=== PATIENT | female | born 1995 | race Caucasian/White ===

== ENCOUNTER 2021-02-01 04:36 | Inpatient (IN) | payer MEDICAID ==
[~2021-02-01] VITALS: Ht 149.9 cm; Wt 60.7 kg
--- NOTE | 2021-02-01 04:56 | NUR ---
pt came into ed this evening after n/v x4days. states it had gone away for a bit and then this morning came back worse than before. still having bowel movements, last bm today. Also reports chest pain beginning this am in the sternal region, pulses 2+. gross neuro intact. nad, bed in lowest, rails engaged, call light on lap, vss, wctm.
[2021-02-01] MEDS ORDERED: ONDANSETRON 2MG/ML, 2ML ONE (05:19)
[2021-02-01] MEDS ORDERED: SODIUM CHLORIDE 0.9% 1,000ML IVBOLUS ONE (05:30)
[2021-02-01] MEDS ORDERED: ONDANSETRON 2MG/ML, 2ML IVPush ONE (05:30)
[2021-02-01] MEDS ORDERED: MAALOX/HYOSCYAMINE/LIDOCAINE 45 ML BTL ONE (05:41)
[2021-02-01 05:51] LABS: BASOPHILS % (AUTO) 0 % (0-1); EOSINOPHILS % (AUTO) 3 % (1-7); LYMPHOCYTES % (AUTO) 44 % (22-44); MEAN CORPUSCULAR HEMOGLOBIN 30.8 pg (27.0-34.8); MEAN CORPUSCULAR HGB CONC 33.9 g/dL (32.4-35.8); MEAN PLATELET VOLUME 8.3 fL (7.4-10.4); MONOCYTES % (AUTO) 7 % (2-9); NEUTROPHILS % (AUTO) 45 % (42-75); PLATELET COUNT 255 x10^3/uL (130-400); RED BLOOD COUNT 4.32 x10^6/uL (3.82-5.3); RED CELL DISTRIBUTION WIDTH 12.7 % (9.6-15.2)
--- NOTE | 2021-02-01 05:54 | NUR ---
PT MEDICATED PER MAR, NAD, NO CHANGE IN CONDITION AT THIS TIME. VSS. WAITING FOR LAB AND UA RESULTS. BED IN [facility], RAILS ENGAGED, CALL LIGHT ON LAP, WCTM.
[2021-02-01 06:00] LABS: ALBUMIN 4.2 g/dL (3.4-5.0); ANION GAP 7 mmol/L (5-15); CALCIUM 8.8 mg/dL (8.5-10.1); CHLORIDE 111 mmol/L (98-107); CREATININE 0.95 mg/dL (0.55-1.02)
[2021-02-01] MEDS ORDERED: MAALOX/HYOSCYAMINE/LIDOCAINE 45 ML BTL PO ONE (06:00)
[2021-02-01 06:08] LABS: MICROSCOPIC INDICATED
--- NOTE | 2021-02-01 06:16 | NUR ---
pt ambulated to restroom with a smooth and steady gait. nad, pt is dry heaving at this time. provided new underwear and clean pad due to currently being on period. ERP aware pt is still nauseated. awaiting new orders. wctm.
[2021-02-01] MEDS ORDERED: METOCLOPRAMIDE 5 MG/ML, 2ML IVPush ONE (06:30)
[2021-02-01] MEDS ORDERED: METOCLOPRAMIDE 5 MG/ML, 2ML ONE (06:53)
--- NOTE | 2021-02-01 06:55 | NUR ---
report to jenna dwyer, pt care transferred at this time.
[2021-02-01] MEDS ORDERED: HALOPERIDOL 5 MG/ML IM PRN (07:00)
[2021-02-01] MEDS ORDERED: HALOPERIDOL 5 MG/ML ONE (07:38)
[2021-02-01] MEDS ORDERED: PROMETHAZINE 25 MG/ML, 1ML ONE (08:11)
[2021-02-01] MEDS ORDERED: DIPHENHYDRAMINE 50 MG/ML, 1ML ONE (08:11)
[2021-02-01] MEDS ORDERED: DIPHENHYDRAMINE 50 MG/ML, 1ML IVPush ONE ×2 (08:30)
[2021-02-01] MEDS ORDERED: PROMETHAZINE 25 MG/ML, 1ML IM ONE (08:30)
[2021-02-01] MEDS ORDERED: IBUPROFEN 600 MG TABLET PO PRN (11:00)
[2021-02-01] MEDS ORDERED: ACETAMINOPHEN 325 MG TABLET PO PRN (11:00)
[2021-02-01] MEDS ORDERED: DIPHENHYDRAMINE 25 MG CAPSULE PO PRN (11:00)
--- NOTE | 2021-02-01 11:01 | NUR ---
PHONE REPORT TO GIOVANI MCKEON
--- NOTE | 2021-02-01 11:37 | NUR ---
PHONE REPORT TO GIOVANI FINCH
[2021-02-01] MEDS: PROMETHAZINE 25 MG/ML, 1ML IM PRN ×3 (12:55→20:14)
[2021-02-01] MEDS: LACTATED RINGERS 1,000 ML IV SCH ×2 (13:01→20:18)
[2021-02-01 13:04] VITALS: BP 157/97
[2021-02-01] MEDS ORDERED: POTASSIUM CHLORIDE 40 MEQ in SODIUM CHLORIDE 0.9% 500 ML IV ONE (14:00)
[2021-02-01] MEDS: ONDANSETRON 2MG/ML, 2ML IVPush PRN (14:49)
[2021-02-01] MEDS ORDERED: ALBUTEROL SULFATE 2.5 MG/3 ML NPPB PRN ×2 (15:00)
[2021-02-01] MEDS: KETOROLAC 30 MG/1 ML IV PRN (16:59)
[2021-02-01 17:05] LABS: AMPHETAMINE SCREEN, URINE Negative (Negative); BARBITURATE SCREEN, URINE Negative (Negative); BENZODIAZEPINE SCREEN, URINE Negative (Negative); CANNABINOID SCREEN, URINE Positive (Negative); COCAINE SCREEN, URINE Negative (Negative); METHADONE SCREEN, URINE Negative (Negative); OPIATE SCREEN, URINE Negative (Negative)
[2021-02-01] MEDS: FAMOTIDINE 20 MG/2 ML IVPush SCH (20:12)
[2021-02-01] MEDS: ONDANSETRON ODT 4 MG PO PRN (20:14)
[2021-02-01] MEDS ORDERED: FAMOTIDINE 20 MG TABLET PO SCH (21:00)
[2021-02-01 21:21] VITALS: BP 140/99
[2021-02-02 00:33] VITALS: BP 132/89
[2021-02-02] MEDS: ONDANSETRON 2MG/ML, 2ML IVPush PRN ×3 (02:05→21:27)
[2021-02-02] MEDS: ONDANSETRON ODT 4 MG PO PRN (03:01)
[2021-02-02] MEDS: KETOROLAC 30 MG/1 ML IV PRN (03:01)
[2021-02-02] MEDS: LACTATED RINGERS 1,000 ML IV SCH (03:46)
[2021-02-02] MEDS: PROMETHAZINE 25 MG/ML, 1ML IM PRN ×4 (06:28→18:31)
[2021-02-02 06:50] VITALS: BP 165/97
[2021-02-02] MEDS: FAMOTIDINE 20 MG/2 ML IVPush SCH ×2 (08:44→21:27)
[2021-02-02 09:01] LABS: ANION GAP 8 mmol/L (5-15); CALCIUM 8.7 mg/dL (8.5-10.1); CHLORIDE 98 mmol/L (98-107); CREATININE 0.68 mg/dL (0.55-1.02)
[2021-02-02] MEDS ORDERED: CEFTRIAXONE 1,000 MG in DEXTROSE 5% 50 ML IVPB SCH (14:00)
[2021-02-02 21:12] VITALS: BP 148/102
[2021-02-03] MEDS: PROMETHAZINE 25 MG/ML, 1ML IM PRN ×5 (00:11→20:31)
[2021-02-03 00:51] VITALS: BP 164/106
[2021-02-03] MEDS: ONDANSETRON 2MG/ML, 2ML IVPush PRN ×2 (03:34→09:41)
[2021-02-03] MEDS: SODIUM CHLORIDE 0.9% 1,000 ML IV SCH ×3 (06:40→22:55)
[2021-02-03 07:38] LABS: BASOPHILS % (AUTO) 0 % (0-1); EOSINOPHILS % (AUTO) 0 % (1-7); LYMPHOCYTES % (AUTO) 18 % (22-44); MEAN CORPUSCULAR HEMOGLOBIN 30.9 pg (27.0-34.8); MEAN CORPUSCULAR HGB CONC 34.7 g/dL (32.4-35.8); MEAN PLATELET VOLUME 8.1 fL (7.4-10.4); MONOCYTES % (AUTO) 9 % (2-9); NEUTROPHILS % (AUTO) 73 % (42-75); PLATELET COUNT 318 x10^3/uL (130-400); RED BLOOD COUNT 5.48 x10^6/uL (3.82-5.3); RED CELL DISTRIBUTION WIDTH 12.7 % (9.6-15.2)
[2021-02-03 07:46] LABS: ANION GAP 8 mmol/L (5-15); CALCIUM 8.4 mg/dL (8.5-10.1); CHLORIDE 92 mmol/L (98-107); CREATININE 0.72 mg/dL (0.55-1.02)
[2021-02-03 07:52] VITALS: BP 140/102
[2021-02-03] MEDS: FAMOTIDINE 20 MG/2 ML IVPush SCH ×2 (08:10→20:30)
[2021-02-03 08:12] VITALS: BP 121/74
[2021-02-03 12:35] VITALS: BP 162/97
[2021-02-03] MEDS ORDERED: SODIUM CHLORIDE 0.9%, 500ML IVBOLUS ONE (14:30)
[2021-02-03] MEDS ORDERED: LORazepam 2 MG/ML, 1ML IVPush ONE ×2 (14:30→21:30)
[2021-02-03] MEDS ORDERED: POTASSIUM CHLORIDE 40 MEQ in SODIUM CHLORIDE 0.9% 500 ML IV ONE (15:00)
[2021-02-03 15:46] LABS: ANION GAP 7 mmol/L (5-15); CALCIUM 7.9 mg/dL (8.5-10.1); CHLORIDE 97 mmol/L (98-107); CREATININE 0.95 mg/dL (0.55-1.02)
[2021-02-03 21:18] VITALS: BP 110/74
[2021-02-04 01:57] VITALS: BP 162/106
[2021-02-04] MEDS: SODIUM CHLORIDE 0.9% 1,000 ML IV SCH (05:33)
[2021-02-04 06:31] LABS: CHLORIDE 107 mmol/L (98-107)
[2021-02-04 06:50] LABS: ANION GAP 5 mmol/L (5-15); CALCIUM 7.7 mg/dL (8.5-10.1); CREATININE 0.77 mg/dL (0.55-1.02)
[2021-02-04 07:12] VITALS: BP 104/71
[2021-02-04] MEDS: FAMOTIDINE 20 MG/2 ML IVPush SCH (08:44)
[2021-02-04] MEDS ORDERED: ONDA4TAB13 PO (10:16)
[2021-02-04] MEDS ORDERED: LORA-446 PO (10:16)
[2021-02-04] MEDS ORDERED: PROM12.554 PR (10:22)
== END 2021-02-04 11:16 | disposition home or self-care (01) | DRG 463 ==
LOC: SUATTDRO 09:28 → ED 10:44 → OBSVTOIN 11:09 → EDIP 11:09 → INTOOBSV 11:09 → 4EST 11:53 → DCLOUNGE 02-04 11:10
PROVIDERS: ADMIT Family Medicine; ATTEND Family Medicine
PROC: 0T9B70Z Drainage of Bladder with Drainage Device, Via Natural or Artificial Opening (ICD-10-PCS; principal; 2021-02-01)
DX: N12 Tubulo-interstitial nephritis, not specified as acute or chronic (principal); E87.1 Hypo-osmolality and hyponatremia; N30.90 Cystitis, unspecified without hematuria; J45.20 Mild intermittent asthma, uncomplicated; I10 Essential (primary) hypertension; F12.90 Cannabis use, unspecified, uncomplicated; E86.0 Dehydration; E87.6 Hypokalemia
CPT/HCPCS: 36415; 74176; 80048; 80307; 81001; 82040; 82533; 83735; 83930; 83935; 84300; 84443; 84703; 85025; 87086; 87147; 93005; 96361; 96372; 96374; 96375; G0378; J0696; J1885; J2405; J2550; J3480; Q0162; J1200; J1630; J2060; J2765; J7030; J7040; J7120; Q0163

== ENCOUNTER 2021-03-23 15:58 | Emergency (ER) | payer MEDICAID ==
[~2021-03-23] VITALS: Ht 149.9 cm; Wt 54.8 kg
[~2021-03-23 15:58] MED LIST: LORA-446 PO; ONDA4TAB13 PO; PROM12.554 PR
[2021-03-23 16:04] VITALS: BP 139/86
--- NOTE | 2021-03-23 16:27 | NUR ---
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
--- NOTE | 2021-03-23 16:45 | NUR ---
US AT BEDSIDE.
--- NOTE | 2021-03-23 17:05 | NUR ---
ALL RESULTS ARE BACK AT THIS TIME. CHART UP FOR RECHECK.
== END 2021-03-23 18:12 | disposition home or self-care (01) ==
LOC: ED 17:37
DX: S80.12XA Contusion of left lower leg, initial encounter (principal); X58.XXXA Exposure to other specified factors, initial encounter; Y93.89 Activity, other specified; Y92.410 Unspecified street and highway as the place of occurrence of the external cause; Y99.8 Other external cause status
CPT/HCPCS: 99284

== ENCOUNTER 2021-06-10 12:23 | Emergency (ER) | payer MEDICAID ==
[~2021-06-10] VITALS: Ht 149.9 cm; Wt 55.0 kg
[2021-06-10 13:00] LABS: BASOPHILS % (AUTO) 0 % (0-1); EOSINOPHILS % (AUTO) 2 % (1-7); LYMPHOCYTES % (AUTO) 28 % (22-44); MEAN CORPUSCULAR HEMOGLOBIN 30.8 pg (27.0-34.8); MEAN CORPUSCULAR HGB CONC 34.3 g/dL (32.4-35.8); MONOCYTES % (AUTO) 7 % (2-9); NEUTROPHILS % (AUTO) 64 % (42-75); PLATELET COUNT 287 x10^3/uL (130-400); RED BLOOD COUNT 4.52 x10^6/uL (3.82-5.3); RED CELL DISTRIBUTION WIDTH 12.9 % (9.6-15.2)
[2021-06-10 13:09] LABS: ALBUMIN 4.2 g/dL (3.4-5.0); ANION GAP 5 mmol/L (5-15); CALCIUM 9.2 mg/dL (8.5-10.1); CHLORIDE 107 mmol/L (98-107); CREATININE 0.88 mg/dL (0.55-1.02)
--- NOTE | 2021-06-10 13:17 | NUR ---
[employer]o [employer] founder note: Pt in US, will be taken to room 18 when study complete.
--- NOTE | 2021-06-10 13:33 | NUR ---
ERP AT BS FOR EVAL
--- NOTE | 2021-06-10 13:35 | NUR ---
PT TO ROOM AFTER US. PT CONNECTED TO MONITORS, CALL LIGHT WITHIN REACH. PT C/O LMP April 20. PT STATES SHE HAS CRAMPS/ABD PAIN WITH LIGHT SPOTTING W/ N/V. BED IN LOWEST POSITION, BED RAILS UP X2.
[2021-06-10] MEDS ORDERED: ONDANSETRON ODT 4 MG ONE ×2 (13:39→13:43)
[2021-06-10] MEDS ORDERED: ONDANSETRON ODT 4 MG PO ONE (14:00)
[2021-06-10 14:58] VITALS: BP 120/70
--- NOTE | 2021-06-10 15:00 | NUR ---
PT RESTING ON TEODORO JOHNSN/VSS. CALL LIGHT WITHIN REACH. NO NEEDS AT THIS TIME
== END 2021-06-10 15:15 | disposition home or self-care (01) ==
LOC: ED 15:01
DX: O26.891 Other specified pregnancy related conditions, first trimester (principal); O21.8 Other vomiting complicating pregnancy; Z32.01 Encounter for pregnancy test, result positive; O99.331 Smoking (tobacco) complicating pregnancy, first trimester; F17.200 Nicotine dependence, unspecified, uncomplicated; Z3A.01 Less than 8 weeks gestation of pregnancy
CPT/HCPCS: 36415; 76801; 80048; 82040; 84702; 85025; 86901; 99284; Q0162

== ENCOUNTER 2021-06-12 10:48 | Emergency (ER) | payer MEDICAID ==
[~2021-06-12] VITALS: Ht 149.9 cm; Wt 56.0 kg
--- NOTE | 2021-06-12 11:15 | NUR ---
CODE 250 PAGED TO LOBBY RESTROOM. PT LYING ON FLOOR. ABLE TO SIT UP, AWAKE AND ALERT. PT WHEELED TO FRONT OF LOBBY WHERE STAFF CAN OBSERVE. RELOCATION ASSOCIATE UPDATED.
--- NOTE | 2021-06-12 11:29 | NUR ---
no answer from lobby to triage.
[2021-06-12] MEDS ORDERED: ONDANSETRON 2MG/ML, 2ML IVPush ONE (12:00)
[2021-06-12] MEDS ORDERED: SODIUM CHLORIDE FLUSH 10ML SYR IVF ONE (12:00)
[2021-06-12] MEDS ORDERED: SODIUM CHLORIDE 0.9% 1,000ML IVBOLUS ONE (12:00)
[2021-06-12] MEDS ORDERED: ONDANSETRON 2MG/ML, 2ML ONE (12:12)
--- NOTE | 2021-06-12 12:18 | NUR ---
FIRST DAY LMP WAS APRIL 20. SHE HAS NAUSEA, VOMITING, . SHE IS VERY EMOTIONAL ABOUT HER NAUSEA, TRYING TO HELP, GOT WARM BLANKET AND ZOFRAN. NOW STAND BY ASSIST FOR VAG ULTRASOUND
[2021-06-12 12:19] LABS: BASOPHILS % (AUTO) 0 % (0-1); EOSINOPHILS % (AUTO) 0 % (1-7); LYMPHOCYTES % (AUTO) 13 % (22-44); MEAN CORPUSCULAR HEMOGLOBIN 30.6 pg (27.0-34.8); MEAN CORPUSCULAR HGB CONC 33.7 g/dL (32.4-35.8); MEAN PLATELET VOLUME 8.2 fL (7.4-10.4); MONOCYTES % (AUTO) 3 % (2-9); NEUTROPHILS % (AUTO) 85 % (42-75); PLATELET COUNT 285 x10^3/uL (130-400); RED BLOOD COUNT 4.32 x10^6/uL (3.82-5.3); RED CELL DISTRIBUTION WIDTH 13.3 % (9.6-15.2)
[2021-06-12 12:32] LABS: ALBUMIN 4.5 g/dL (3.4-5.0); ANION GAP 11 mmol/L (5-15); CALCIUM 8.9 mg/dL (8.5-10.1); CHLORIDE 106 mmol/L (98-107)
--- NOTE | 2021-06-12 12:36 | NUR ---
STAND BY THROUGHOUT ULTRASOUND TRANSVAG WITH YOON. NO COMPLICATIONS. PATIENT CONTINUES NAUSEATED.
[2021-06-12 12:51] LABS: ALANINE AMINOTRANSFERASE 23 U/L (12-78); ALKALINE PHOSPHATASE 57 U/L (45-117); BILIRUBIN,TOTAL 0.4 mg/dL (0.2-1.0); CREATININE 0.78 mg/dL (0.55-1.02); TOTAL PROTEIN 8.5 g/dL (6.4-8.2)
[2021-06-12] MEDS ORDERED: PROMETHAZINE 25 MG/ML, 1ML ONE (12:54)
--- NOTE | 2021-06-12 12:58 | NUR ---
PATIENT STATING CANT PEE, WILL REASSESS. PATIENT STILL HAS NAUSEA, LET ME KNOW AND ORDERS RECEIVED
[2021-06-12] MEDS ORDERED: PROMETHAZINE 25 MG/ML, 1ML IM ONE (13:00)
[2021-06-12 13:56] VITALS: BP 135/78
--- NOTE | 2021-06-12 13:57 | NUR ---
REPORT TO ANALY MATUTE
[2021-06-12] MEDS ORDERED: LACTATED RINGERS 1,000 ML IVBOLUS ONE (14:00)
--- NOTE | 2021-06-12 15:21 | NUR ---
PT REPORTS NAUSEA WITH PO CHALLENGE
[2021-06-12] MEDS ORDERED: LORazepam 1MG TABLET PO ONE (15:30)
[2021-06-12] MEDS ORDERED: LORazepam 1MG TABLET ONE (15:48)
== END 2021-06-12 17:28 | disposition home or self-care (01) ==
LOC: ED 13:53
DX: O20.0 Threatened abortion (principal); O21.0 Mild hyperemesis gravidarum; E86.0 Dehydration; E86.9 Volume depletion, unspecified; Z20.822 Contact with and (suspected) exposure to COVID-19; Z3A.01 Less than 8 weeks gestation of pregnancy
CPT/HCPCS: 36415; 76801; 80053; 84702; 85025; 87635; 93005; 96361; 96372; 96374; 99285; J2405; J2550; J7030; J7120

== ENCOUNTER 2021-06-14 19:32 | Emergency (ER) | payer MEDICAID ==
[~2021-06-14] VITALS: Ht 149.9 cm; Wt 55.9 kg
[2021-06-14 20:03] VITALS: BP 124/81
[2021-06-14] MEDS ORDERED: SODIUM CHLORIDE FLUSH 10ML SYR IVF ONE (20:30)
[2021-06-14] MEDS ORDERED: SODIUM CHLORIDE 0.9% 1,000ML IVBOLUS ONE (20:30)
--- NOTE | 2021-06-14 21:00 | NUR ---
PT NIL X 1 WHEN CALLED FOR LAB.
--- NOTE | 2021-06-14 21:35 | NUR ---
NA X 2 WHEN CALLED FOR LAB
--- NOTE | 2021-06-14 22:36 | NUR ---
NA X 3
== END 2021-06-14 22:39 | disposition left against medical advice (07) ==
LOC: ED 19:40
DX: R11.10 Vomiting, unspecified (principal); R94.31 Abnormal electrocardiogram [ECG] [EKG]
CPT/HCPCS: 93005; 99283